=== PATIENT | female | born 1965 | race African-American/Black ===

== ENCOUNTER 2020-01-10 09:04 | Outpatient (CLI) | payer OTHER, SELFPAY ==
--- NOTE | ~2020-01-10 | MR_ITS ---
MR breast BI wo/w con 01/13/2020 08:27 GENERAL INTERNAL MEDICINE PHYSICIAN INDICATION: History of right breast cancer. Status post radiation therapy. TECHNIQUE: MRI of the breasts perform using standard protocol pre-and post IV contrast with the follo wing sequences: Axial T2 STIR, axial T1, axial vibrant T1 with fat suppression precontrast and multip hasic postcontrast. COMPARISON: Comparison to multiple prior studies sequentially, with oldest reviewed study dated 04/2016. FINDINGS: There there is chronic architectural distortion in the lower outer quadrant of the right br east. There is moderate background parenchymal enhancement. There is significant contrast enhancement in the area of architectural distortion, although no discrete mass is identified. This area does not appear to be significantly changed compared with prior examinations on precontrast images. The degre e of enhancement in the area of previous surgery limits evaluation for subtle abnormalities. No evide nce of signal abnormalities in the axillary or internal mammary node distributions. LEFT BREAST: No signal abnormalities on precontrast sequences. There is moderate background parenchy mal enhancement. No enhancing lesions following contrast administration. No areas of enhancement m eeting threshold criteria on CAD analysis. No evidence of signal abnormalities in the axillary or i nternal mammary node distributions. IMPRESSION: 1: Right breast: Negative. No evidence of malignancy. Examination limited by degree of enhancement . BI-RADS category 2. Recommend annual mammography follow-up. 2: Left breast: Negative. No evidence of malignancy. BI-RADS category 1. Examination limited by de gree of enhancement. Recommend annual mammography follow-up. Reviewed, dictated and finalized at location A. RAL INTERNAL MEDICINE PHYSICIAN IMPRESSION: 1: Right breast: Negative. No evidence of malignancy. Examination limited by degree of enhancement. BI-RADS category 2. Recommend annual mammography follo w-up. 2: Left breast: Negative. No evidence of malignancy. BI-RADS category 1. Exa mination limited by degree of enhancement. Recommend annual mammography follow- up.
[2020-01-10 10:24] LABS: Estimated Glomerular Filt Rate > 60
== END 2020-01-10 09:05 | disposition home or self-care (01) ==
LOC: ANHIMG 09:06
PROVIDERS: Visit Provider Internal Medicine
DX: R92.8 Other abnormal and inconclusive findings on diagnostic imaging of breast (principal); L29.8 Other pruritus; L29.9 Pruritus, unspecified
CPT/HCPCS: 36415; 77049; A9577; C8908

== ENCOUNTER 2020-01-24 08:00 | Outpatient (RCR) | payer OTHER, SELFPAY ==
--- NOTE | 2019-11-26 08:46 | PTOPEVAL ---
PHYSICAL THERAPY EVALUATION AND PLAN OF CARE 11-26-2019 The PT evaluation was completed today for the diagnosis of R UE lymphedema. The Plan of treatment is for 3x/week for 5 weeks. Thank you for referring Monique to [facility]. Please review, sign, date and return this plan of care OZZIE. I agree with and certify that the following plan of care is medically necessary. Referring Physician Date Attending Provider: Shailesh Sanchez, *PT Outpatient Evaluation Start: 11/26/19 07:11 Document 11/26/19 07:00 ASHISH (Rec: 11/26/19 08:10 ASHISH [id number]) Assessment Status Evaluation Outpatient Past Medical History Gastrointestinal History Hx Hernia Yes: surgical repair 2018 Evaluation Information Problem Diagnosis Lymphedema R arm Onset Jun 2019 Subjective Information after hernia surgery Query Text:As Reported By Patient/ Family Prior Level of Function Activity Level (Last 3 Months) Occupation not working outside of home Hand Dominance Right Activity of Daily Living Ability Independent Indoor/Home Mobility Independent Community Mobility Independent Stairs Ability Independent Functional Cognition (Planning, Shopping Independent , Taking Medications) Cooking No Home Setting Home Type Apartment,Single Level Environmental Barriers Stairs, Greater than 4 Living Situation With Relatives Support Available Local Family Support Mobility Assistive Devices (Used Last 3 None Months) Prior Cognition/Communication Prior Communication Level No Impairment Prior Cognitive Function Able to Function Independently Prior Ability to Handle Finances Independent Comments Additional Prior Level of Function live with grand daughter; son Comments nearby assist with transportation; pt able to walk through grocery store, but not very active; reports sit and watch TV; does move R arm 'around some so does not get stiff have assist with cooking, due to R hand not working too well ; have fallen a few times due to legs give out have stairs into her apt, but once in the apt, is all one level; indep with bathing, dressing; Pa
--- NOTE | 2019-11-26 09:18 | PTOPEVAL ---
PHYSICAL THERAPY EVALUATION AND PLAN OF CARE 11-26-2019 The PT evaluation was completed today for the diagnosis of R UE and breast lymphedema. The plan of treatment is set for 3x/week for 5 weeks. Thank you for referring Mrs. Rodríguez to [facility]. Please review, sign, date and return this plan of care OZZIE. I agree with and certify that the following plan of care is medically necessary. Referring Physician Date Attending Provider: Shailesh Sanchez, *PT Outpatient Evaluation Start: 11/26/19 07:11 Freq: Status: Active Protocol: Document 11/26/19 07:00 ASHISH (Rec: 11/26/19 08:10 ASHISH [id number]) Outpatient Past Medical History Neurological History Hx Neurological Disorders No Significant History Cardiovascular History Hx Cardiac Disorders No Significant History Respiratory History Hx Respiratory Disorders No Significant History Gastrointestinal History Hx Hernia Yes: surgical repair 2019 Genitourinary History Hx Genitourinary Disorders No Significant History Musculoskeletal History Hx Other Musculoskeletal Disorders Yes: knee pain, legs give out Hematological History Hx Hematological Disorders No Significant History Endocrine History Hx Endocrine Disorders No Significant History HEENT History Hx HEENT Disorders No Significant History Evaluation Information Problem Diagnosis Lymphedema R arm Onset Jun 2019 Subjective Information after hernia surgery Query Text:As Reported By Patient/ Family Prior Level of Function Activity Level (Last 3 Months) Occupation not working outside of home Hand Dominance Right Activity of Daily Living Ability Independent Indoor/Home Mobility Independent Community Mobility Independent Stairs Ability Independent Functional Cognition (Planning, Shopping Independent , Taking Medications) Cooking No Home Setting Home Type Apartment,Single Level Environmental Barriers Railing, Bilateral,Stairs, Greater than 4 Living Situation With Relatives Support Available Local Family Support Mobility Assistive Devices (Used Last 3 None Months) Prior Cognition/Communication Prior Communication Level No Impairment Prior Cognitive Function Able to Function Independently Prior Ability to Handle Finances Independent Comments Additional Prior Level of Function live with grand daughter; son Comments nearby assist with transportation; pt able to walk through grocery store, but not very
--- NOTE | 2019-11-26 09:39 | PCPTNOTE ---
completed [employer] form for insurance authorization of treatment. Await approval to schedule and start treatment.
--- NOTE | 2019-12-10 13:16 | PCPTNOTE ---
no show no call. Huson called pt and she stated she was at a doctors appt and was going to call us when she got out and will she us on Friday.
--- NOTE | 2019-12-22 13:08 | PCPTNOTE ---
Pt no show, no call for today's appointment. Called pt and Monique stated she did not have transportation today but would be in on Friday.
--- NOTE | 2019-12-27 08:32 | PCPTNOTE ---
Patient did not show up for scheduled appointment this date. Called patient left voice mail reminder of Friday appt and asked her to please return our call. Faxed information to [facility] for pt to obtain an intermittent compression pump for home use.
--- NOTE | 2020-01-07 08:47 | PTOPEVAL ---
PHYSICAL THERAPY RE-EVALUATION AND UPDATED PLAN OF CARE 01-07-2020 Mrs. Rodríguez has received 10 Physical Therapy sessions, from November 16 to today, for the diagnosis of R UE and trunk lymphedema. She did not show for 3 scheduled appointments. Compared to the initial evaluation: circumferential measurement of her R arm is 3.8 cm larger--her arm changes, depending upon her wearing the compression wraps; There is not any edema over lateral trunk; she is going to receive the home intermittent compression pump soon and is going to be fitted for a compression sleeve at [facility] soon- does not have an appointment yet. The size of her arm varies due to her removing her compression wraps. There is no longer any tenderness over the breast or axilla areas. R shoulder ROM and strength have improved; Education is completed for home shoulder exercises, doing self massage and compression wraps over R arm. Will continue PT treatments 1-2x/week for 3 weeks, for her to obtain compression sleeve and pump, to complete education and self management of lymphedema. Thank you for referring Monique to [facility]. Please review, sign, date and return this plan of care OZZIE. I agree with and certify that the following plan of care is medically necessary. Referring Physician Date Attending Provider: Shailesh Sanchez MD Document 01/07/20 08:10 ASHISH (Rec: 01/07/20 08:33 ASHISH [id number]) Subjective Information Monique reports: arm is better, Query Text:As Reported By Patient/ getting smaller; to get Family appointment for fitting of arm sleeve; is able to do the wraps on her arm; heard from the company for the home pump- to arrive soon and they will set up training time; Pain Assessment Timing of Pain Assessment Timing of Pain Assessment Assessment Pain Scale Pain Scale Used Numeric (1 - 10) Self Report Pain Assessment Right Arm(s) Reported Pain Level 0 Additional Pain Comments no pain in arm Pain Score Pain Score 0: Self Report Upper Extremity Range of Motion General Upper Extremity Range of Motion Reason Not Measured WNL/Left,WNL/Right Gross Upper Extremity Range of Motion standing active ROM R shoulder Comments flexion 150', abduction 150', ER- reach to back of head; IR - reach behind back, palm to waist; pt reports using arm for home tasks and chores, only have help with vacuuming; Lymphedema Evaluation UE Circumferential Measurement Left UE Lymphedema Side Left Mid-Proximal Third Finger (cm) 7 Palm (cm) 21.2 Wrist Crease (cm) 19.4 4 cm From Wrist (cm) 24 8 cm From Wrist (cm) 25.8 12 cm From Wrist (cm) 28.8 16 cm From Wrist (cm)
--- NOTE | 2020-02-10 13:23 | PCPTNOTE ---
PHYSICAL THERAPY DISCHARGE 02-10-2020 Attending Provider: Shailesh Sanchez MD Patient:Monique Rodríguez Date of :1965 Ms. Rodríguez has not returned for any further treatments since 01/24/2020, therefore she will be discharged from therapy at this time. The goals were not addressed. Thank you for referring Tania to [facility]. Please review, sign, date and return this discharge summary OZZIE. I have been updated about the patient's current status and I agree with discharge from the above service at this time. Referring Physician Date
== END 2020-02-11 10:40 | disposition home or self-care (01) ==
LOC: ANHPT 08:00
PROVIDERS: Visit Provider Internal Medicine
DX: I89.0 Lymphedema, not elsewhere classified (principal); C50.511 Malignant neoplasm of lower-outer quadrant of right female breast; Z17.0 Estrogen receptor positive status [ER+]; L29.9 Pruritus, unspecified
CPT/HCPCS: 29581; 97110; 97140; 97162

== ENCOUNTER 2020-12-19 08:21 | Outpatient (CLI) | payer OTHER, SELFPAY ==
--- NOTE | ~2020-12-19 | MM_ITS ---
EXAMINATION: MM screening matt BI w sebastián HISTORY: Screening mammogram TECHNIQUE: Craniocaudal and mediolateral oblique 3-D tomosynthesis images were obtained and synthetic 2-D images were generated. CAD analysis was submitted and interpreted. COMPARISON: 01/10/2020 bilateral breast MRI examination 12/07/2019 diagnostic right digital mammogram / bilateral digital screening mammogram 01/26/2019 MR breast examination 10/30/2018 bilateral digital screening mammogram 04/22/2018 bilateral diagnostic digital mammogram BREAST PARENCHYMAL COMPOSITION: There are scattered areas of fibroglandular density. FINDINGS: There is postoperative scarring, retraction and volume loss and benign calcification of fat necrosis of the right breast following partial mastectomy and radiotherapy for right breast cancer. There is no evidence of suspicious mass, calcification, or new architectural distortion to suggest ma lignancy in either breast. There has been no suspicious interval change. IMPRESSION: 1. No mammographic evidence of malignancy. 2. Recommend routine screening mammography in one year. BI-RADS Category 2: Benign finding(s). Reviewed, dictated and finalized at location A. LATORY COMPLIANCE DIRECTOR
== END 2020-12-19 08:22 | disposition home or self-care (01) ==
LOC: ANHIMG 08:24
PROVIDERS: Visit Provider Internal Medicine
DX: Z12.31 Encounter for screening mammogram for malignant neoplasm of breast (principal)
CPT/HCPCS: 77063; 77067

== ENCOUNTER 2021-06-25 08:58 | Outpatient (CLI) | payer OTHER, SELFPAY ==
--- NOTE | ~2021-06-25 | MR_ITS ---
EXAMINATION: MR breast BI wo/w con INDICATION: Malignant neoplasm of the lower outer quadrant of the right breast TECHNIQUE: Axial VIBRANT pre and dynamic post contrast, Sagittal VIBRANT post contrast, Axial T2 STIR ASSET COMPARISON: 01/10/2020, 11/27/2019 CONTRAST: Multihance, 20 cc BREAST COMPOSITION: Scattered fibroglandular tissue FINDINGS: RIGHT BREAST: There is mild background parenchymal enhancement. There are stable changes related to p rior lumpectomy which include skin thickening and architectural distortion. There is an area of uncha nged region of chronic nonmass enhancement in the area of prior surgery without focal mass. No abnorm al enhancement is present after contrast administration. No pathologically enlarged axillary or inter nal mammary lymph nodes are identified. LEFT BREAST: There is moderate background parenchymal enhancement. No abnormal enhancement is present after contrast administration. No pathologically enlarged axillary or internal mammary lymph nodes a re identified. IMPRESSION: 1. Changes related to treatment for right breast cancer without evidence of malignancy. BI-RADS Category 2: Benign finding(s). Reviewed, dictated and finalized at location A. IMPRESSION: 1. Changes related to treatment for right breast cancer without evidence of mal ignancy. BI-RADS Category 2: Benign finding(s).
[2021-06-25 10:16] LABS: Estimated Glomerular Filt Rate > 60
[2021-06-27 15:03] LABS: Estimated Glomerular Filt Rate > 60
== END 2021-06-25 08:59 | disposition home or self-care (01) ==
LOC: ANHIMG 09:07
PROVIDERS: Visit Provider Internal Medicine
DX: C50.511 Malignant neoplasm of lower-outer quadrant of right female breast (principal); Z17.0 Estrogen receptor positive status [ER+]; R92.8 Other abnormal and inconclusive findings on diagnostic imaging of breast; L29.9 Pruritus, unspecified
CPT/HCPCS: 77049; A9577; C8908